=== PATIENT | female | born 1985 ===

== ENCOUNTER → 2020-05-26 | Outpatient (CLI) | payer OTHER | END | disposition home or self-care (01) | LOC: PRENATAL 13:30 | PROVIDERS: ATTEND Obstetrics & Gynecology Maternal & Fetal Medicine | DX: Z36.89 Encounter for other specified antenatal screening (principal); O36.80X1 Pregnancy with inconclusive fetal viability, fetus 1; Z3A.11 11 weeks gestation of pregnancy ==

== ENCOUNTER → 2020-07-23 | Outpatient (CLI) | payer OTHER | END | disposition home or self-care (01) | LOC: PRENATAL 08:00 | PROVIDERS: ATTEND Obstetrics & Gynecology Maternal & Fetal Medicine | DX: O35.0XX1 Maternal care for (suspected) central nervous system malformation in fetus, fetus 1 (principal); O35.3XX1 Maternal care for (suspected) damage to fetus from viral disease in mother, fetus 1; O98.512 Other viral diseases complicating pregnancy, second trimester; Z36.89 Encounter for other specified antenatal screening; Z3A.20 20 weeks gestation of pregnancy ==

== ENCOUNTER 2020-12-09 01:27 | Inpatient (IN) | payer OTHER ==
[~2020-12-09] VITALS: Ht 157.5 cm; Wt 80.3 kg
[2020-12-09] MEDS ORDERED: PRENATABS RX T1 EACH PO (02:07)
[2020-12-09] MEDS ORDERED: FE C PLUS TABL1 EACH PO (02:07)
[2020-12-09] MEDS ORDERED: VALACYCLOVIR500 MG PO (02:08)
== END 2020-12-11 14:27 | disposition home or self-care (01) | DRG 807 ==
LOC: LDR 01:27 → OB/GYN 10:34
PROVIDERS: ADMIT Specialist; ATTEND Specialist
PROC: 10E0XZZ Delivery of Products of Conception, External Approach (ICD-10-PCS; principal; 2020-12-09)
PROC: 0HQ9XZZ Repair Perineum Skin, External Approach (ICD-10-PCS; 2020-12-09)
PROC: 4A1HXFZ Monitoring of Products of Conception, Cardiac Rhythm, External Approach (ICD-10-PCS; 2020-12-09)
DX: O70.0 First degree perineal laceration during delivery (principal); Z37.0 Single live birth; Z3A.40 40 weeks gestation of pregnancy

== ENCOUNTER 2022-09-14 12:57 | Outpatient (CLI) | payer OTHER ==
[~2022-09-14 12:57] MED LIST: FE C PLUS TABL1 EACH PO; PRENATABS RX T1 EACH PO; VALACYCLOVIR500 MG PO
== END 2022-09-14 15:00 | disposition home or self-care (01) ==
LOC: PRENATAL 12:57
PROVIDERS: ATTEND Obstetrics & Gynecology Maternal & Fetal Medicine
DX: O35.9XX0 Maternal care for (suspected) fetal abnormality and damage, unspecified, not applicable or unspecified (principal); O35.3XX0 Maternal care for (suspected) damage to fetus from viral disease in mother, not applicable or unspecified; O09.529 Supervision of elderly multigravida, unspecified trimester; Z3A.20 20 weeks gestation of pregnancy

== ENCOUNTER 2022-12-07 15:52 | Outpatient (CLI) | payer OTHER | END 2022-12-07 16:49 | disposition home or self-care (01) | LOC: PRENATAL 15:52 | PROVIDERS: ATTEND Obstetrics & Gynecology Maternal & Fetal Medicine | DX: O26.849 Uterine size-date discrepancy, unspecified trimester (principal); O36.8199 Decreased fetal movements, unspecified trimester, other fetus; O09.529 Supervision of elderly multigravida, unspecified trimester; Z3A.32 32 weeks gestation of pregnancy ==